=== PATIENT | male | born 1970 | race Caucasian/White ===

== ENCOUNTER → 2017-06-25 10:57 | Outpatient (CLI) | payer OTHER, SELFPAY ==
--- NOTE | 2017-06-25 11:06 | XR_ITS ---
XR hip RT 2-3V w/pelvis COMPARISON: None HISTORY: Right hip pain TECHNIQUE: AP pelvis cone-down AP and frog-leg views right hip FINDINGS: The iliac bones and pubic bones appear intact. Both hips are normally articulated with no evidence of fracture. There is moderate sclerosis of the roof of the acetabulum right hip with mild spurring of the acetabulum as well and there is asymmetrical joint space narrowing. There are similar but less prominent findings left hip. SI joints and symphysis pubis appear normal. IMPRESSION: Moderate osteoarthritic change right hip with mild osteoarthritic change left hip, no acute fracture seen
--- NOTE | 2017-06-25 11:06 | XR_ITS ---
XR knee RT 3V COMPARISON: None HISTORY: Right knee pain TECHNIQUE: AP lateral and oblique views FINDINGS: There is no significant joint space narrowing. There is minor spurring of the tibial spines. There is mild narrowing of the patellofemoral space with minimal spurring of the superior border of the patella. There is no effusion. There is no fracture or loose body. IMPRESSION: Minor degenerative changes, no fracture seen
== END ==
PROVIDERS: PCP Internal Medicine Adolescent Medicine; Visit Provider Internal Medicine Adolescent Medicine
DX: M25.551 Pain in right hip (principal); M25.561 Pain in right knee
CPT/HCPCS: 73502; 73562

== ENCOUNTER → 2017-07-29 15:04 | Outpatient (CLI) | payer OTHER, SELFPAY ==
[2017-07-29 15:27] LABS: Basophils % 0.3 % (0.1-2.0); Eosinophils # 0.2 K/mm3 (0.0-0.4); Eosinophils % 2.4 % (0.1-12.0); Hematocrit 51.6 % (42.0-52.0); Hemoglobin 17.1 g/dL (14.1-18.0); Lymphocytes # 1.5 K/mm3 (0.7-4.5); Lymphocytes % 22.2 K/mm3 (10-50); Mean Corpuscular HGB Conc 33.2 g/dL (31.8-35.4); Mean Corpuscular Hemoglobin 30.5 pg (27.0-31.2); Mean Platelet Volume 7.7 fl (7.4-10.4); Monocytes # 0.5 K/mm3 (0.1-1.0); Monocytes % 6.8 % (1.7-9.3); Neutrophils # 4.7 K/mm3 (1.8-7.8); Neutrophils % 68.3 % (37.0-80.0); Platelet Count 205 K/mm3 (142-424); Red Blood Count 5.61 M/mm3 (4.60-6.20); Red Cell Distribution Width 12.7 % (11.5-17.5); White Blood Count 6.9 K/mm3 (4.8-10.8)
[2017-07-29 16:08] LABS: Alanine Aminotransferase 52 U/L (12-78); Albumin Level 3.8 gm/dL (3.4-5.0); Albumin/Globulin Ratio 1.3 (1.1-1.8); Alkaline Phosphatase 64 U/L (46-116); Anion Gap 11.2 mEq/L (5-15); Aspartate Amino Transferase 23 U/L (15-37); Blood Urea Nitrogen 18 mg/dL (7-18); Calcium 9.4 mg/dL (8.5-10.1); Carbon Dioxide 30 mmol/L (21.0-32.0); Chloride 108 mmol/L (98-107); Creatinine,Serum 1.01 mg/dL (0.70-1.30); Estimated Glomerular Filt Rate 80 ml/min (>60); Free Thyroxine Index 2.6 ug/dL (5.93-13.13); GFR (African American) 97 ML/MIN (>60); Glucose 106 mg/dL (74-106); Magnesium 1.9 mg/dL (1.4-2.2); Potassium 4.2 mmoL/L (3.5-5.1); Sodium 145 mmol/L (136-145); T4 (Thyroxine) 7.1 ug/dl (4.7-13.3); Total Protein,Serum 6.8 gm/dL (6.4-8.2); Triiodothryronine (T3) Uptake 36 % (31-39)
[2017-07-31 17:28] LABS: Vitamin B12 590 pg/mL (232-1245)
== END ==
PROVIDERS: Visit Provider Internal Medicine Adolescent Medicine
DX: R55 Syncope and collapse (principal)
CPT/HCPCS: 36415; 80053; 82607; 83735; 84436; 84443; 84479; 85025; 93225; 93226

== ENCOUNTER → 2020-09-06 09:02 | Outpatient (CLI) | payer OTHER, SELFPAY ==
[2020-09-06 09:21] LABS: Basophils # 0.1 K/mm3 (0-0.2); Basophils % 1.1 % (0.1-2.0); Eosinophils # 0.3 K/mm3 (0.0-0.4); Eosinophils % 5.9 % (0.1-12.0); Hematocrit 46.7 % (42.0-52.0); Hemoglobin 16.1 g/dL (14.1-18.0); Lymphocytes # 1.3 K/mm3 (0.7-4.5); Mean Corpuscular HGB Conc 34.4 g/dL (31.8-35.4); Mean Corpuscular Volume 90.2 fl (80-94); Mean Platelet Volume 8.2 fl (7.4-10.4); Monocytes # 0.4 K/mm3 (0.1-1.0); Monocytes % 6.6 % (1.7-9.3); Neutrophils # 3.3 K/mm3 (1.8-7.8); Neutrophils % 61.4 % (37.0-80.0); Platelet Count 206 K/mm3 (142-424); Red Blood Count 5.18 M/mm3 (4.60-6.20); Red Cell Distribution Width 13.2 % (11.5-17.5); White Blood Count 5.3 K/mm3 (4.8-10.8)
[2020-09-06 09:28] LABS: Hemoglobin A1C 5.1 % (4.0-6.0)
[2020-09-06 11:11] LABS: Chloride 106 mmol/L (98-107); Potassium 4.8 mmoL/L (3.5-5.1); Sodium 145 mmol/L (136-145)
[2020-09-06 11:13] LABS: Blood Urea Nitrogen 24 mg/dl (9-20); Estimated Glomerular Filt Rate 80 ml/min (>60); GFR (African American) 97 ML/MIN (>60)
[2020-09-06 11:14] LABS: Alanine Aminotransferase 21 U/L (12-78); Albumin Level 4.4 g/dl (3.5-5.0); Albumin/Globulin Ratio 1.7 (1.1-1.8); Alkaline Phosphatase 73 U/L (38-126); Anion Gap 12.8 mEq/L (5-15); Aspartate Amino Transferase 29 U/L (17-59); Bilirubin,Total 1.3 mg/dl (0.2-1.3); Calcium 9.3 mg/dl (8.4-10.2); Carbon Dioxide 31 mmol/L (22.0-30.0); Cholesterol 196 mg/dl (140-200); Globulin 2.6 g/dL (1.3-3.2); Glucose 85 mg/dl (74-100); Triglycerides 97 mg/dl (30-150); VLDL Cholesterol 19 mg/dL (0-40)
[2020-09-06 11:15] LABS: Chol/HDL Ratio 5.2 (1-3.5); HDL Cholesterol 38 mg/dl (40-60); Magnesium 2.1 mg/dl (1.6-2.3)
[2020-09-06 11:26] LABS: Direct LDL Cholesterol 115.33 mg/dL (100-129)
[2020-09-06 11:44] LABS: Thyroid Stimulating Hormone 0.92 uIU/mL (0.465-4.68)
== END ==
PROVIDERS: Visit Provider Internal Medicine Adolescent Medicine
DX: Z00.00 Encounter for general adult medical examination without abnormal findings (principal); R60.9 Edema, unspecified
CPT/HCPCS: 80053; 80061; 83036; 83735; 84443; 85025

== ENCOUNTER → 2022-03-15 14:52 | Outpatient (CLI) | payer OTHER, SELFPAY ==
[2022-03-15 16:08] LABS: Basophils # 0.1 K/mm3 (0-0.2); Basophils % 1.2 % (0.1-2.0); Eosinophils # 0.2 K/mm3 (0.0-0.4); Eosinophils % 3.8 % (0.1-12.0); Hematocrit 46.1 % (42.0-52.0); Hemoglobin 15.8 g/dL (14.1-18.0); Lymphocytes # 1.7 K/mm3 (0.7-4.5); Lymphocytes % 27.9 % (10-50); Mean Corpuscular HGB Conc 34.2 g/dL (31.8-35.4); Mean Corpuscular Hemoglobin 31.3 pg (27.0-31.2); Mean Corpuscular Volume 91.3 fl (80-94); Mean Platelet Volume 8.5 fl (7.4-10.4); Monocytes # 0.5 K/mm3 (0.1-1.0); Monocytes % 8.2 % (1.7-9.3); Neutrophils # 3.6 K/mm3 (1.8-7.8); Neutrophils % 58.9 % (37.0-80.0); Platelet Count 227 K/mm3 (142-424); Red Blood Count 5.05 M/mm3 (4.60-6.20); Red Cell Distribution Width 13.2 % (11.5-17.5); White Blood Count 6.1 K/mm3 (4.8-10.8)
[2022-03-15 16:34] LABS: Alanine Aminotransferase 60 U/L (12-78); Albumin Level 4.3 g/dl (3.5-5.0); Albumin/Globulin Ratio 1.6 (1.1-1.8); Alkaline Phosphatase 67 U/L (38-126); Anion Gap 11.8 mEq/L (5-15); Aspartate Amino Transferase 37 U/L (17-59); Blood Urea Nitrogen 20 mg/dl (9-20); Calcium 9.1 mg/dl (8.4-10.2); Carbon Dioxide 32 mmol/L (22.0-30.0); Chloride 102 mmol/L (98-107); Chol/HDL Ratio 3.9 (1-3.5); Cholesterol 137 mg/dl (140-200); Estimated Glomerular Filt Rate 71 ml/min (>60); GFR (African American) 86 ML/MIN (>60); Globulin 2.7 g/dL (1.3-3.2); Glucose 99 mg/dl (74-100); HDL Cholesterol 35 mg/dl (40-60); Potassium 4.8 mmoL/L (3.5-5.1); Sodium 141 mmol/L (136-145); Triglycerides 150 mg/dl (30-150); VLDL Cholesterol 30 mg/dL (0-40)
[2022-03-15 16:46] LABS: Direct LDL Cholesterol 72.81 mg/dL (100-129)
[2022-03-15 19:08] LABS: Prostate Specific Ag Screen 1.1 ng/ml (0.0-4.0)
== END ==
PROVIDERS: PCP Internal Medicine Adolescent Medicine; Visit Provider Internal Medicine Adolescent Medicine
DX: Z00.00 Encounter for general adult medical examination without abnormal findings (principal); D36.9 Benign neoplasm, unspecified site; E78.5 Hyperlipidemia, unspecified; R50.9 Fever, unspecified; Z12.5 Encounter for screening for malignant neoplasm of prostate
CPT/HCPCS: 36415; 80053; 80061; 85025; G0103

== ENCOUNTER 2022-04-01 08:56 | Day surgery (SDC) | payer OTHER, SELFPAY ==
[2022-03-04 14:57] VITALS: BMI 23.1
[2022-04-01] VITALS (8 sets, daily range): BP systolic 103–128; BP diastolic 62–80; PULSE 52–58; RESP 16–18; TEMP 36.2–36.4; O2SAT 97–100
--- NOTE | 2022-04-01 09:42 | [facility].SCOPE ---
Procedure: Date: 04/01/22 Patient Date of :: 1970 Procedure Performed:: Colonoscopy with polypectomy with snare Indications:: Family history of colon cancer Personal history of colon polyp Performing Provider:: Marianela Mercer MD Referring Provider:: Mauro Paulino Sedation:: Propofol Procedure:: After placing the patient in the left lateral decubitus position, the colonoscopy was gently inserted into the rectum and under direct visualization advanced to the cecum which was identified by transillumination in the right lower quadrant, identification of the ileocecal valve, appendiceal orifice, and cecal strap. Color, texture, mucosa, and anatomy of the colon were carefully examined with the scope. Findings:: Anal canal: normal Rectum: normal Sigmoid colon: normal without polyps or inflammatory changes Descending colon: normal without polyps or inflammatory changes Splenic flexure: normal Transverse colon: normal without polyps or inflammatory changes Hepatic flexure: normal Ascending colon: normal, 5mm polyp identified and removed with use of cold snare Cecum: normal Terminal ileum: not visualized Impression: Polyp of ascending colon Specimens:: Polyp, ascending colon Recommendations:: Repeat examination in about THREE years or so, sooner if clinically indicated. Complications:: None Estimated blood obtained (mL): 0
--- NOTE | 2022-04-01 10:19 | EXP.ANES.CKL ---
[facility] Disclaimer: The information contained in this section may have been updated after the patient was seen, as this information can be updated by other users. Medical History History of ear infections History of mastoiditis Hyperlipidemia Surgical History History of tonsillectomy Family History Mother Lung cancer Brother Colon cancer Father Prostate cancer Other Family history of Alzheimer's disease Family history of CABG Family history of coronary artery disease Family history of heart valve abnormality Family history of myocardial infarction Social History Smoking Status: Never smoker alcohol intake: never substance use type: denies use current occupational status: employed Travel in the last 8 weeks: Outside the [facility] household members: family housing: house lives independently: Yes marital status: education level: high school caffeine: Yes special cristian needs: No agree to transfusion: No do you feel safe at home: Yes victim of physical abuse: No victim of emotional abuse: No victim of sexual abuse: No would you like helpful sources: No [facility] Anesthesia Checklist Patient Identification Patient Identification: Verbal (Name & ) Structural Data Admitted From: Home Planned Operative Procedure/s: colonoscopy Consent for Planned Operative Procedure(s) Verified: Yes Airway Assessment C-Spine Mobility Assessed: Yes TMJ Mobility Assessed: Yes Dentition: Good Dentition Neurological Assessment Level of Consciousness: Awake, Alert and Appropriate Anesthesia Plan Anesthesia Risk discussed: Yes Anesthesia Plan: Verified ASA Class: I Anesthesia Type: MAC
== END 2022-04-01 10:45 | disposition home or self-care (01) ==
PROVIDERS: PCP Internal Medicine Adolescent Medicine; Visit Provider Internal Medicine Gastroenterology
PROC: 0DJD8ZZ Inspection of Lower Intestinal Tract, Via Natural or Artificial Opening Endoscopic (ICD-10-PCS; CPT 45378; principal; 2022-04-01 10:00)
DX: Z12.11 Encounter for screening for malignant neoplasm of colon (principal); D12.2 Benign neoplasm of ascending colon; Z86.010 Personal history of colon polyps; Z80.0 Family history of malignant neoplasm of digestive organs
CPT/HCPCS: 45385